=== PATIENT | male | born 1965 | race Caucasian/White ===

== ENCOUNTER 2021-03-18 11:48 | Emergency (ER) | payer MEDICARE, OTHER ==
[~2021-03-18] VITALS: Ht 188 cm; Wt 95.2 kg
[2021-03-18] MEDS ORDERED: HYDROCODON-ACE1 EA10 PO (20:01)
--- OUTSIDE RECORDS SUMMARY | 2021-03-18 20:50 | XMS ---
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 E.D. VISIT COUNT (12 MO.) 6 [facility] BERNARDA Moore TOTAL 21 NOTE: Visits indicate total known visits. ED/UCC VISIT TRACKING (12 MO.) 03/18/2021 11:50 BERNARDA Kraft TYPE: Emergency COMPLAINT: - NECK PAIN, R SIDE NUMBNESS 12/13/2020 07:44 [facility] Maritza CABRERA TYPE: Emergency DIAGNOSES: - Procedure and treatment not carried out due to patient leaving prior to being seen by health care provider - x3 skin problem - Skin Problem 11/14/2020 19:32 Brian CABRERA TYPE: Emergency DIAGNOSES: - Headache, unspecified - Opioid dependence, uncomplicated 11/10/2020 22:01 Brian CABRERA TYPE: Emergency DIAGNOSES: - Disorder of the skin and subcutaneous tissue, unspecified - Headache, unspecified - Malingerer [conscious simulation] [facility] DI[facility]ES: - Migraine, unspecified, intractable, with status migrainosus - Headache (Adult - Recurrent Or Known Dx Migraines) - Insect Bite 10[facility]27/2020 23:[facility] DIAGNOSES: - Major depressive disorder, recurrent severe without psychotic features - COVID-19 - Suicidal Thoughts - Personality disorder, unspecified - Other problems related to lifestyle - Generalized anxiety disorder - Dysthymic disorder - Other chronic pain - Spinal stenosis, cervical region - Suicidal ideations - Spinal stenosis, lumbar region without neurogenic claudication 10/22/2020 17:39 [facility] DIAGNOSES: - Headache (Adult - Recurrent Or Known Dx Migraines) - Migraine, unspecified, not intractable, with status migrainosus 10/12/2020 21:53 [facility] Sadia CABRERA TYPE: Emergency DIAGNOSES: - Dermatitis, unspecified 10/04/2020 00:51 Brian CABRERA TYPE: Emergency DIAGNOSES: - Arthrodesis status - Headache, unspecified - Migraine, unspecified, not intractable, without status migrainosus - Cervicalgia 09/23/2020 02:11 [facility] Maritza CABRERA TYPE: Emergency DIAGNOSES: - Rash - x4 shingles - Dermatitis, unspecified 09/18/2020 18:11 [facility] Jyotsna CABRERA [facility] TYPE: Emergency DIAGNOSES: - Migraine without aura, not intractable, without status migrainosus - Rash and other nonspecific skin eruption - Headache (Adult - Recurrent Or Known Dx Migraines) [facility] DIAGNOSES: - Rash and other nonspecific skin eruption - Left-sided flank rash - Rash 08/18/2020 16:59 [facility] DEBORAH Mccullough TYPE: Emergency DIAGNOSES: - Migraine without aura, not intractable, without status migrainosus - Headache (Adult - Recurrent Or Known Dx Migraines) - Dermatitis, unspecified - Rash 07/30/2020 09:55 [facility] DEBORAH TYPE: Emergency DIAGNOSES: - Head Injury - Unspecified speech disturbances - Syncope and collapse - x3 Fall 07/26/2020 21:10 [facility] Jyotsna CABRERA [facility] TYPE: Emergency DIAGNOSES: - Procedure and treatment not carried out due to patient leaving prior to being seen by health care provider - Fall 07/23/2020 14:20 [facility] Sadia CABRERA TYPE: Emergency DIAGNOSES: - Unspecified abdominal hernia without obstruction or gangrene - Bariatric surgery status - Testicular pain, unspecified - Other chronic pain 06/26/2020 00:14 [facility] CABRERA TYPE: Emergency DIAGNOSES: - Migraine, unspecified, not intractable, without status migrainosus 06/03/2020 23:21 [facility] Sad[facility] CABRERA TYPE: Emergency 05/26/2020 23:40 [facility]RERA TYPE: Emergency DIAGNOSES: - x3 testicle pain/swelling - Testicle Pain - Testicular pain, unspecified - Other chronic pain 04/20/2020 22:14 [place] CABRERA TYPE: Emergency DIAGNOSES: - Cervicalgia - Unspecified convulsions Plus 1 More Visit INPATIENT VISIT TRACKING (12 MO.) No inpatient visits to display in this time frame [id number]
== END 2021-03-18 20:48 | disposition home or self-care (01) ==
LOC: ED 11:48
DX: S16.1XXA Strain of muscle, fascia and tendon at neck level, initial encounter (principal); M54.12 Radiculopathy, cervical region; Z91.030 Bee allergy status; Z91.038 Other insect allergy status; Z88.5 Allergy status to narcotic agent; Z88.6 Allergy status to analgesic agent; Z91.041 Radiographic dye allergy status; Z88.1 Allergy status to other antibiotic agents; X50.1XXA Overexertion from prolonged static or awkward postures, initial encounter
CPT/HCPCS: 72040; 72070; 72125; 72128; 96372; 99284-25; J1100